=== PATIENT | male | born 1985 | race Caucasian/White ===

== ENCOUNTER 2019-05-09 11:55 | Emergency (ER) | payer OTHER ==
[2019-05-09 12:11] VITALS: BP 124/74; PULSE 89; TEMP 98.4; BMI 22.8
[2019-05-09] MEDS ORDERED: AZITHROMYCIN 250 MG TABLET PO ONE (12:27)
--- NOTE | 2019-05-09 12:34 | PDOC ---
History of Present Illness - General Chief Complaint: Penile Drainage Stated Complaint: STD Time Seen by Provider: 05/09/19 12:18 History Source: Patient Exam Limitations: No Limitations - History of Present Illness Initial Comments: 05/09/19 12:29 Patient is a 34-year-old male who presents to the ED with complaint of some burning with urination and slight penile drainage. He states that he was having unprotected sexual intercourse with a female who told him that she was positive for gonorrhea. The patient denies any blood in his urine. He denies any fevers or chills. He has not taken anything for his symptoms. The patient denies any past medical history or allergies to medications. Past History - Past Medical History Allergies/Adverse Reactions: Allergies Allergy/AdvReac Type Severity Reaction Status Date / Time No Known Allergies Allergy Verified 05/09/19 12:09 Home Medications: Ambulatory Orders NK [No Known Home Medication] 05/09/19 COPD: No - Psycho Social/Smoking Cessation Hx Smoking History: Current every day smoker Information on smoking cessation initiated: Yes Hx Alcohol Use: No Drug/Substance Use Hx: No Review of Systems - Review of Systems Comments:: 05/09/19 12:31 - Review of Systems Able to Perform ROS?: Yes Constitutional: No: Fever, Chills, Loss of Appetite, Night Sweats, Weakness HEENTM: No: Eye Pain, Vision changes, Ear Pain, Throat Pain, Throat Swelling, Mouth Pain, Difficulty Swallowing Respiratory: No: Cough, Shortness of Breath, Wheezing, Sputum Production Cardiac (ROS): No: Chest Pain, Chest Tightness, Palpitations, Irregular Heart Beat, Edema ABD/GI: No: Nausea, Vomiting, Abdominal Pain, Diarrhea : No Hematuria, No Frequency, No Urgency; positive: dysuria and Penile Discharge/Pain Musculoskeletal: No: Muscle Pain, Back Pain, Joint Pain, Muscle Weakness, Neck Pain Integumentary: No: Lesions, Rash Neurological: No: Headache, Numbness, Tingling, Weakness, Speech Difficulties *Physical Exam - Vital Signs Last Vital Signs Temp Pulse Resp BP Pulse Ox 98.4 F 89 18 124/74 100 05/09/19 12:09 05/09/19 12:09 05/09/19 12:09 05/09/19 12:09 05/09/19 12:09 - Physical Exam 05/09/19 12:32 - Physical Exam General Appearance: Nourished, Appropriately Dressed, No Distress HEENT: EOMI, Normal Voice, No Muffled/Hoarse voice, No Nasal Congestion, No Rhinorrhea, Hearing Grossly Normal Neck: Supple, No Lymphadenopathy (R), No Lymphadenopathy (L), No Rigidity, No Decreased range of motion Respiratory/Chest: Lungs Clear, Normal Breath Sounds. No Respiratory Distress, No Accessory Muscle Use Cardiovascular: Regular Rhythm, Regular Rate, S1, S2 Gastrointestinal/Abdominal: Normal Bowel Sounds, Soft. Non-tender, No Guarding , No Rebound, No Rigidity : There was scant clear discharge at the penile meatus with some tenderness to the glans penis to palpation. There are no rashes or lesions appreciated. Musculoskeletal: Normal Inspection. No Decreased Range of Motion Extremity: Normal Capillary Refill, Normal Inspection Integumentary: Normal Color, Dry. No Rash Neurologic: furnace mechanic II-XII NML intact, Fully Oriented, Alert, Normal Mood/Affect, Normal Response Medical Decision Making - Medical Decision Making 05/09/19 12:33 Assessment: Patient is a 34-year-old male with exposure to gonorrhea who presents to the ED with dysuria and penile discharge. Plan: -UA sent -Urine GC/chlamydia sent -Ceftriaxone 250 mg IM x1 -Azithromycin 1 g p.o. x1 -Will reassess 05/09/19 12:50 The patient's urinalysis is negative. He has been made aware that his cultures have been sent to the lab. He was treated in the emergency department. He has been made aware that he will get a call regarding the results of his cultures. He has been made aware that he should avoid sexual activity for the next 1 to 2 weeks. He understands and agrees with this treatment plan and the patient is stable for discharge. Discharge - Discharge Information Problems reviewed: Yes Clinical Impression/Diagnosis: Exposure to STD Condition: Stable Disposition: HOME - Follow up/Referral - Patient Discharge Instructions Patient Printed Discharge Instructions: DI for Gonorrhea Additional Instructions: You were exposed to gonorrhea and have been treated in the emergency department. You will get a call regarding the results of your testing in the next few days as it takes several days for the results to come back. You should avoid sexual intercourse for the next 1 to 2 weeks to ensure that you have cleared the infection. - Post Discharge Activity Work/Back to School Note: Back to Work
[2019-05-09] MEDS ORDERED: AZITHROMYCIN 250 MG TABLET ONE (12:37)
[2019-05-09 12:48] LABS: PH,URINE 5.5 (5.0-8.0); URINE APPEARANCE CLEAR; URINE BILIRUBIN NEGATIVE (NEGATIVE); URINE COLOR YELLOW; URINE GLUCOSE (UA) NEGATIVE (NEGATIVE); URINE KETONE NEGATIVE (NEGATIVE); URINE LEUK ESTERASE NEGATIVE (NEGATIVE); URINE NITRITE NEGATIVE (NEGATIVE); URINE PROTEIN NEGATIVE (NEGATIVE)
== END 2019-05-09 12:56 | disposition home or self-care (01) ==
LOC: JERFT 11:55
DX: Z20.2 Contact with and (suspected) exposure to infections with a predominantly sexual mode of transmission (principal); F17.210 Nicotine dependence, cigarettes, uncomplicated
CPT/HCPCS: 36415; 81003; 87491; 87591; 99284-25

== ENCOUNTER 2019-10-05 11:44 | Emergency (ER) | payer OTHER ==
[2019-10-05 11:47] VITALS: TEMP 98; BMI 22.6
--- NOTE | 2019-10-05 12:22 | PDOC ---
History of Present Illness - General Chief Complaint: Injury Stated Complaint: FALL Time Seen by Provider: 10/05/19 11:51 History Source: Patient Exam Limitations: No Limitations - History of Present Illness Initial Comments: 10/05/19 12:17 34-year-old male denies past medical history presents complaining of right ankle pain status post mechanical trip and fall down an unknown number of steps at approximately 3 AM. States he was with family, had many drinks of alcohol. Denies headache, neck pain, chest pain, abdominal pain, back pain or any other complaints. Patient awoke this morning, unable to bear weight on right ankle, took 2 tabs of ibuprofen 600 mg approximately 1 hour ago. Tetanus vaccine up-to-date. ROS: as above PE: GENERAL: well-appearing, NAD HEAD: NCAT EYES: Pupils equal, round and reactive to light, sclera anicteric, conjunctiva clear ENT: pharynx: no erythema, no exudate, uvula midline NECK: supple CHEST: nontender, no crepitus RESP: clear, no w/r/r CARDIO: rrr, no m/g/r ABD: +BS, soft, nontender, non distended BACK: no midline spinal ttp, no CVAT EXTREMITIES: Swelling to right ankle medial and lateral aspect, mild deformity noted, positive pedal pulses NEUROLOGICAL: Normal speech, normal gait SKIN: Abrasions noted to right knee and medial aspect of right ankle 10/05/19 15:06 Is this a multiple visit Asthma Patient?: No Past History - Medical History Allergies/Adverse Reactions: Allergies Allergy/AdvReac Type Severity Reaction Status Date / Time No Known Allergies Allergy Verified 10/05/19 11:47 Home Medications: Ambulatory Orders NK [No Known Home Medication] 05/09/19 COPD: No - Psycho-Social/Smoking History Smoking History: Never smoked Number of Cigarettes Smoked Daily: 10 - Substance Abuse Hx (Audit-C & DAST Scrn) How often the patient has a drink containing alcohol: Monthly or less Score: In Men: 4 or > Positive; In Women: 3 or > Positive: 1 Screen Result (Pos requires Nsg. Audit-10AR): Negative *Physical Exam - Vital Signs Last Vital Signs Temp Pulse Resp BP Pulse Ox 98 F 88 18 122/77 99 10/05/19 11:45 10/05/19 11:45 10/05/19 11:45 10/05/19 11:45 10/05/19 11:45 Procedures - Splinting Splint Location: Right: Ankle (Right posterior leg splint) Pre-Proc Neuro Vasc Exam: normal Hand-Made Type: fiberglass Splint Type: Yes: Posterior Post-Proc Neuro Vasc Exam: normal Silvio Bandage: 4" Sling: No Complications: No Post splint xray: No ED Treatment Course - RADIOLOGY Radiology Studies Ordered: Category Date Time Status ANKLE & FOOT-RIGHT* [RAD] Stat Radiology 10/05/19 12:10 Ordered KNEE 2 POS-RIGHT [RAD] Stat Radiology 10/05/19 12:11 Ordered LEG TIB/FIB-RIGHT [RAD] Stat Radiology 10/05/19 12:11 Ordered Medical Decision Making - Medical Decision Making 10/05/19 12:21 34-year-old male denies past medical history presents complaining of right ankle pain status post mechanical trip and fall down an unknown number of steps at approximately 3 AM. States he was with family, had many drinks of alcohol. De nies headache, neck pain, chest pain, abdominal pain, back pain or any other complaints. Patient awoke this morning, unable to bear weight on right ankle, took 2 tabs of ibuprofen 600 mg approximately 1 hour ago. Tetanus vaccine up-to-date. R ankle/tib/fib/knee xrays 2:25pm [facility] - discussed case with Dr. Krishna who also reviewed xrays Maisonneuve fx Patient placed in a posterior right leg splint and crutches provided Patient understands he is to be non weight bearing Will follow-up with Dr. Krishna this week Discharge - Discharge Information Problems reviewed: Yes Clinical Impression/Diagnosis: Right leg pain Condition: Stable Disposition: HOME - Admission No - Follow up/Referral Referrals: Manuel Krishna MD [Staff Physician] - - Patient Discharge Instructions Additional Instructions: Keep right leg splint on until you follow-up with orthopedics Call Dr. Krishna tomorrow to schedule an appointment Rest, keep legs elevated Take ibuprofen 600 mg every 6 hours as needed for pain If you develop worsening pain, swelling or any concerns return to the ED Use crutches at all times, do not bear weight on your right leg - Post Discharge Activity
[2019-10-05 15:23] VITALS: BP 119/73; PULSE 79
== END 2019-10-05 15:22 | disposition home or self-care (01) ==
LOC: JERFT 11:44
DX: M79.604 Pain in right leg (principal)
CPT/HCPCS: 73560-TC-RT-FY; 73590-TC-RT-FY; 73610-TC-RT-FY; 73630-TC-RT-FY; 99284-25

== ENCOUNTER 2019-10-16 04:18 | Day surgery (SDC) | payer OTHER ==
[2019-10-13 15:28] VITALS: BMI 22.6
[2019-10-16] MEDS ORDERED: DEXAMETHASONE SOD PHOSPHATE/PF 10 MG/ML SDV ONE (06:38)
[2019-10-16] MEDS ORDERED: BUPIVACAINE HCL 200 ML ONE (06:39)
[2019-10-16] MEDS ORDERED: MIDAZOLAM HCL 2 MG/2 ML SINGLE DOSE VIAL ONE ×5 (06:41→06:52)
[2019-10-16] MEDS ORDERED: SODIUM CHLORIDE 0.9% P/F 10 ML VIAL IJ ONE (06:51)
[2019-10-16] MEDS ORDERED: LIDOCAINE HCL/PF 2% SDV 5ML VIAL ONE (06:51)
[2019-10-16] MEDS ORDERED: ceFAZolin SODIUM 1 GM VIAL ONE (06:51)
[2019-10-16] MEDS ORDERED: PROPOFOL 20 ML ONE ×3 (06:52)
[2019-10-16] MEDS ORDERED: SUCCINYLCHOLINE CHLORIDE 200 MG/10 ML SYRINGE ONE (06:53)
[2019-10-16] MEDS ORDERED: ONDANSETRON 4 MG/2 ML VIAL IVPUSH PRN (07:06)
[2019-10-16] MEDS ORDERED: oxyCODONE HCL 5 MG TABLET PO PRN ×2 (07:06)
[2019-10-16] MEDS ORDERED: LACTATED RINGERS SOLUTION 1,000 ML IV SCH (07:15)
[2019-10-16] MEDS ORDERED: LIDOCAINE HCL 1%, 10 MG/ML (20ML VIAL) ONE (07:29)
--- NOTE | 2019-10-16 07:40 | OP ---
Operative Note - Note: Operative Date: 10/16/19 Pre-Operative Diagnosis: Right ankle fracture Operation: Right ankle ORIF Post-Operative Diagnosis: Same as Pre-op Surgeon: Manuel Krishna Overseamer: Silvia Mcdonough Anesthesia: General Operative Report Dictated: Yes
[2019-10-16] MEDS ORDERED: ONDANSETRON 4 MG/2 ML VIAL ONE (10:13)
--- NOTE | 2019-10-16 10:36 | OP ---
DATE OF OPERATION: 10/16/2019 PREOPERATIVE DIAGNOSIS: Right ankle Maisonneuve fracture. POSTOPERATIVE DIAGNOSIS: Right ankle Maisonneuve fracture. PROCEDURE: Right ankle open reduction internal fixation. SURGEON: Manuel Krishna MD JUNIOR NETWORK ENGINEER: RAYNE Barnett, physician construction management assistant, whose skillful assistance was necessary for the safe and timely performance of this procedure. Ms. Mcdonough was able to provide assistance in positioning, traction, assist in fracture reduction as well as insertion of orthopedic fixation hardware. ANESTHESIA: General. POSTOPERATIVE CONDITION: Stable. COMPLICATIONS: Two TightRopes. INDICATIONS: This is a 34-year-old gentleman who suffered an ankle fracture. He was found to have instability and widening of the mortise. Therefore, operative care was indicated. Nonsurgical care was discussed. However, this would result in nonanatomic reduction and operative care was highly recommended. Operative risks were reviewed in detail including bleeding, infection, neurovascular injury, need for further surgery, postoperative pain and stiffness, nonunion, malunion, hardware failure, etc. We discussed medical risks such as heart attack, stroke, DVT, PE and . I addressed the use of perioperative antibiotic and DVT prophylaxis. I addressed all the patient's questions and concerns. I reviewed the postoperative rehabilitation protocol. He voiced understanding and elected to proceed. PROCEDURE: The patient was brought to the operating room where general anesthetic was administered. He had previously been given a block in the preoperative holding area. The right lower extremity was then prepped and draped in the usual sterile fashion. A preoperative dose of antibiotics was given and the usual timeout procedure was performed. The ankle was then marked out for the bony landmarks. The fluoroscope was used to verify the location of the underlying bony anatomy. An incision was then carried down through skin to the subcutaneous tissue over the distal fibula. Blunt spreading was used to expose the bony cortex. An elevator was used to create a seating spot for the hardware. K-wire was now drilled across the fibula and across the tibia at the level of the distal physeal scar. It was aimed anterior to reduce the mortise properly. The K-wire placement was verified fluoroscopically and was satisfactory. This was then over drilled. The TightRope was then loaded through the buttressing plate and then inserted. The TightRope was toggled down securing the plate and the TightRope across the joint. A second hole was then drilled using the solid core drill. A TightRope was inserted and toggled. At this point it was found that the second hole had been more anterior than initially was appreciated. This TightRope was removed. Second hole more posteriorly was then drilled. The TightRope was now reinserted. However, on passage, it got caught up between the initial drilled holes and then had to be removed as well as it had toggled in the syndesmosis. A small incision was made over the syndesmosis and blunt spreading was carried down and the button had to be removed. Another pair was now placed through the more posterior hole and then toggled down. It was noted that the lateral side did toggle anteriorly towards the initial hole. That being said, the ankle was examined in 3 views fluoroscopically. The mortise was satisfactorily reduced. The posterior malleolus fracture was satisfactorily reduced and the plate was sitting just at the anterior border of the fibula and, therefore, this was felt to be both satisfactory and biomechanically strong. After toggling the TightRopes down one more time to ensure complete tightness, the sutures were cut. The wounds were now copiously irrigated. The subcutaneous tissue was approximated using 2-0 Vicryl. The skin was closed using 3-0 nylon. Sterile dressings were placed. The patient was placed into a well-padded short leg cast which was then bivalved. He was extubated and transferred to the recovery room in stable condition. Sheila BRISENO/[id number]
[2019-10-16 11:59] VITALS: BP 129/84; PULSE 84; TEMP 97.8
== END 2019-10-16 11:50 | disposition home or self-care (01) ==
LOC: JASU-SURG 04:18
PROVIDERS: ATTEND Orthopaedic Surgery Sports Medicine
PROC: 0QSJ04Z Reposition Right Fibula with Internal Fixation Device, Open Approach (ICD-10-PCS; principal; 2019-10-16 08:16)
DX: S82.861A Displaced Maisonneuve's fracture of right leg, initial encounter for closed fracture (principal); X58.XXXA Exposure to other specified factors, initial encounter; Y93.9 Activity, unspecified; Y92.9 Unspecified place or not applicable
CPT/HCPCS: 76000-TC-FY; 94760

== ENCOUNTER 2022-06-16 07:25 | Day surgery (SDC) | payer OTHER ==
[2022-06-14 09:23] VITALS: BMI 23.3
[2022-06-16] MEDS ORDERED: ONDANSETRON 4 MG/2 ML VIAL IVPUSH PRN (10:31)
[2022-06-16] MEDS ORDERED: oxyCODONE HCL 5 MG TABLET PO PRN ×2 (10:31)
[2022-06-16] MEDS ORDERED: PROPOFOL 20 ML ONE (10:34)
[2022-06-16] MEDS ORDERED: MIDAZOLAM HCL 2 MG/2 ML SINGLE DOSE VIAL ONE (10:34)
[2022-06-16] MEDS ORDERED: LACTATED RINGERS SOLUTION 1,000 ML IV SCH (10:45)
[2022-06-16] MEDS ORDERED: DEXAMETHASONE SOD PHOSPHATE 4 MG/1 ML VIAL ONE (11:18)
[2022-06-16] MEDS ORDERED: ONDANSETRON 4 MG/2 ML VIAL ONE (11:18)
[2022-06-16] MEDS ORDERED: ceFAZolin SODIUM 1 GM VIAL ONE (11:18)
[2022-06-16 13:36] VITALS: RESP 16; TEMP 97.8
[2022-06-16 13:42] VITALS: BP 121/74; PULSE 70
== END 2022-06-16 14:00 | disposition home or self-care (01) ==
LOC: FASU 07:25
PROVIDERS: ATTEND Orthopaedic Surgery
PROC: 0LM24ZZ Reattachment of Left Shoulder Tendon, Percutaneous Endoscopic Approach (ICD-10-PCS; 2022-06-16)
PROC: 0RBK4ZZ Excision of Left Shoulder Joint, Percutaneous Endoscopic Approach (ICD-10-PCS; 2022-06-16)
PROC: 0PBB4ZZ Excision of Left Clavicle, Percutaneous Endoscopic Approach (ICD-10-PCS; principal; 2022-06-16 11:25)
DX: M25.312 Other instability, left shoulder (principal); M75.02 Adhesive capsulitis of left shoulder; M75.42 Impingement syndrome of left shoulder; M19.012 Primary osteoarthritis, left shoulder; S43.432A Superior glenoid labrum lesion of left shoulder, initial encounter; X58.XXXA Exposure to other specified factors, initial encounter; Y93.9 Activity, unspecified; Y92.9 Unspecified place or not applicable
CPT/HCPCS: 94760; C1713

== ENCOUNTER 2023-01-12 20:35 | Emergency (ER) | payer OTHER ==
[2023-01-12 20:49] VITALS: BP 117/77; PULSE 99; RESP 18; TEMP 98.3; BMI 23.3
[2023-01-12] MEDS ORDERED: DIPHTH,PERTUSS(ACELL),TET 0.5 ML DISP.SYRIN IM ONE ×2 (21:39→22:07)
[2023-01-12] MEDS ORDERED: RABIES VACCINE (PCEC)/PF 2.5 UNIT/VIAL IM ONE ×2 (21:43→22:06)
[2023-01-12] MEDS ORDERED: RABIES IMMUNE GLOBULIN 300 UNITS/1 ML VIAL IM ONE (21:43)
[2023-01-12] MEDS ORDERED: AMOX TR/POT CLAV 875MG/125MG TABLETS (FP) ONE (22:06)
[2023-01-12] MEDS ORDERED: AMOX TR/POT CLAV 875MG/125MG TABLETS (FP) PO ONE (22:09)
== END 2023-01-12 23:06 | disposition home or self-care (01) ==
LOC: JERFT 20:35
PROC: 0HQEXZZ Repair Left Lower Arm Skin, External Approach (ICD-10-PCS; principal; 2023-01-12)
PROC: 3E0234Z Introduction of Serum, Toxoid and Vaccine into Muscle, Percutaneous Approach (ICD-10-PCS; 2023-01-12)
DX: S51.852A Open bite of left forearm, initial encounter (principal); Z29.14 Encounter for prophylactic rabies immune globulin; W54.0XXA Bitten by dog, initial encounter
CPT/HCPCS: 12002-25; 73090-TC-LT-FY; 90375; 90471; 90675; 90715; 99283-25

== ENCOUNTER 2023-01-16 12:35 | Emergency (ER) | payer OTHER ==
[2023-01-16 12:43] VITALS: BP 119/58; PULSE 63; RESP 18; TEMP 98.2; BMI 24.2
[2023-01-16] MEDS ORDERED: RABIES VACCINE (PCEC)/PF 2.5 UNIT/VIAL IM ONE ×2 (13:04→13:10)
[2023-01-19] MEDS ORDERED: RABIES VACCINE (PCEC)/PF 2.5 UNIT/VIAL IM ONE (21:39)
== END 2023-01-16 13:40 | disposition home or self-care (01) ==
LOC: JERFT 12:35
PROC: 3E0234Z Introduction of Serum, Toxoid and Vaccine into Muscle, Percutaneous Approach (ICD-10-PCS; principal; 2023-01-16)
DX: Z23 Encounter for immunization (principal)
CPT/HCPCS: 90675; 99282-25

== ENCOUNTER 2023-01-19 21:16 | Emergency (ER) | payer OTHER ==
[2023-01-19 21:26] VITALS: BP 99/67; PULSE 81; RESP 20; TEMP 98.3; BMI 24.2
[2023-01-19] MEDS ORDERED: RABIES VACCINE (PCEC)/PF 2.5 UNIT/VIAL IM ONE (21:28)
== END 2023-01-19 21:53 | disposition home or self-care (01) ==
LOC: JER 21:16
PROC: 3E0234Z Introduction of Serum, Toxoid and Vaccine into Muscle, Percutaneous Approach (ICD-10-PCS; principal; 2023-01-19)
DX: Z48.02 Encounter for removal of sutures (principal); Z23 Encounter for immunization; M79.632 Pain in left forearm
CPT/HCPCS: 90675; 99282-25